=== PATIENT | male | born 1970 | race Caucasian/White ===

== ENCOUNTER 2017-04-12 09:37 | Emergency (ER) | payer OTHER ==
[~2017-04-12] VITALS: Ht 195.6 cm; Wt 135.2 kg
--- NOTE | 2017-04-12 12:30 | NUR ---
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 NO SOB. VITALS STABLE. SAFETY AND COMFORT MEASURES IN PLACE. AWAITING MD ORDERS.
[2017-04-12] MEDS ORDERED: LIDOCAINE 1%-EPI 1:100,000 50 ML VIAL IJ ONE (12:41)
[2017-04-12] MEDS ORDERED: MEROPENEM 1 G in IV NS 0.9% 100 ML IV ONE (13:00)
[2017-04-12] MEDS ORDERED: VANCOMYCIN 1 GM in IV D5W 250 ML IV ONE (13:00)
[2017-04-12] MEDS ORDERED: IV NS 0.9% 1,000 ML BAG IV ONE (13:00)
--- NOTE | 2017-04-12 13:20 | NUR ---
NEW IV STARTED ON R HAND, 20 G. BLOOD DRAWN AND SENT TO LAB.
[2017-04-12 13:32] LABS: BASOPHILS # (AUTO) 0.3 /CMM (0.0-0.2); BASOPHILS % (AUTO) 4.2 % (0.0-2.0); EOSINOPHILS # (AUTO) 0.1 /CMM (0.0-0.7); EOSINOPHILS % (AUTO) 1.6 % (0.0-6.0); HEMATOCRIT 42 % (39-51); HEMOGLOBIN 14.1 g/dL (13.5-17.5); LYMPHOCYTES # (AUTO) 2.2 /CMM (0.8-4.8); LYMPHOCYTES % (AUTO) 30.2 % (20.0-44.0); MEAN CORPUSCULAR HEMOGLOBIN 29 PG (26.0-33.0); MEAN CORPUSCULAR HGB CONC 34 g/dl (31.0-36.0); MEAN CORPUSCULAR VOLUME 86 fL (80-96); MONOCYTES # (AUTO) 0.5 /CMM (0.1-1.30); MONOCYTES % (AUTO) 7.4 % (2.0-12.0); NEUTROPHILS # (AUTO) 4.3 /CMM (1.8-8.9); NEUTROPHILS % (AUTO) 56.6 % (43.0-81.0); PLATELET COUNT (AUTO) 273 /CMM (150-450); RDW COEFFICIENT OF VARIATION 12.4 (11.5-15.0); RED BLOOD CELL COUNT(AUTO) 4.86 MIL/uL (4.5-6.0); WHITE BLOOD COUNT (AUTO) 7.4 K/uL (4.3-11.0)
[2017-04-12 13:39] LABS: CALCIUM, SERUM 9.1 mg/dL (8.5-10.1); CARBON DIOXIDE 25 mmol/L (21-32); CHLORIDE 103 mmol/L (98-107); CREATININE 0.7 mg/dL (0.6-1.3); GLUCOSE 102 mg/dL (74-106); POTASSIUM 4.1 mmol/L (3.5-5.1); SODIUM SERUM 135 mmol/L (136-145); UREA NITROGEN, BLOOD 16 mg/dL (7-18)
[2017-04-12 13:43] LABS: INR 0.94 (0.87-1.13); PROTHROMBIN TIME 9.8 SECS (9.5-12.7)
[2017-04-12 13:45] LABS: ALANINE AMINOTRANSFERASE 26 U/L (12-78); ALBUMIN 3.7 g/dL (3.4-5.0); ALKALINE PHOSPHATASE 102 U/L (46-116); ASPARTATE AMINOTRANSFERASE 24 U/L (15-37); BILIRUBIN,DIRECT 0.1 mg/dL (0.0-0.2); BILIRUBIN,TOTAL 0.5 mg/dL (0.2-1.0); TOTAL PROTEIN, SERUM 8.1 g/dL (6.4-8.2)
[2017-04-12 13:47] LABS: TROPONIN I < 0.017 ng/mL (0.00-0.056)
--- NOTE | 2017-04-12 15:54 | NUR ---
IV removed. Catheter intact and site benign. Pressure and 4x4 applied to site. No bleeding noted.
--- NOTE | 2017-04-12 15:55 | NUR ---
Patient discharged to home in stable condition. Written and verbal after care instructions given. Patient verbalizes understanding of instruction. ADVISED TO FOLLOW UP WITH PMD IN 2 DAYS
[2017-04-12 15:56] VITALS: BP 152/88
[2017-04-12] MEDS ORDERED: HYDROCODONE/APAP 10/325MG 1 EA TABLET ONE (16:28)
[2017-04-12] MEDS ORDERED: HYDROCODONE/APAP 10/325MG 1 EA TABLET PO ONE (16:30)
== END 2017-04-12 15:57 | disposition home or self-care (01) ==
LOC: ER 09:40
DX: L02.512 Cutaneous abscess of left hand (principal); L03.114 Cellulitis of left upper limb
CPT/HCPCS: 10060; 36415; 73130; 80048; 80076; 83605; 84484; 85025; 85652; 85730; 86140; 87040 ×2; 96361; 96365; 96368; 99285; A4216; A4606; A6402; J2185; J3370; J3490; J7030; J7060; Z7610

== ENCOUNTER 2017-08-25 11:41 | Emergency (ER) | payer OTHER | END 2017-08-25 12:18 | disposition left against medical advice (07) | LOC: ER 11:42 | DX: Z53.21 Procedure and treatment not carried out due to patient leaving prior to being seen by health care provider (principal) ==

== ENCOUNTER 2017-08-25 13:01 | Emergency (ER) | payer OTHER ==
[~2017-08-25] VITALS: Ht 195.6 cm; Wt 136.1 kg
[2017-08-25 13:10] VITALS: BP 154/79
[2017-08-25 13:57] LABS: BASOPHILS % (AUTO) 0.4 % (0.0-2.0); EOSINOPHILS # (AUTO) 0.1 /CMM (0.0-0.7); EOSINOPHILS % (AUTO) 0.8 % (0.0-6.0); HEMATOCRIT 40 % (39-51); HEMOGLOBIN 13.6 g/dL (13.5-17.5); LYMPHOCYTES # (AUTO) 1.5 /CMM (0.8-4.8); LYMPHOCYTES % (AUTO) 19.2 % (20.0-44.0); MEAN CORPUSCULAR HEMOGLOBIN 28 PG (26.0-33.0); MEAN CORPUSCULAR HGB CONC 34 g/dl (31.0-36.0); MEAN CORPUSCULAR VOLUME 84 fL (80-96); MONOCYTES # (AUTO) 0.8 /CMM (0.1-1.30); MONOCYTES % (AUTO) 9.4 % (2.0-12.0); NEUTROPHILS # (AUTO) 5.7 /CMM (1.8-8.9); NEUTROPHILS % (AUTO) 70.2 % (43.0-81.0); PLATELET COUNT (AUTO) 241 /CMM (150-450); RDW COEFFICIENT OF VARIATION 12.4 (11.5-15.0); RED BLOOD CELL COUNT(AUTO) 4.81 MIL/uL (4.5-6.0); WHITE BLOOD COUNT (AUTO) 8.1 K/uL (4.3-11.0)
[2017-08-25 14:04] LABS: CREATININE 0.9 mg/dL (0.6-1.3); POTASSIUM 4.1 mmol/L (3.5-5.1)
--- NOTE | 2017-08-25 14:05 | NUR ---
BEAD FORMING MACHINE SET UP OPERATOR AT BEDSIDE
[2017-08-25 14:28] LABS: BILIRUBIN,URINE Negative (NEGATIVE); BLOOD, URINE Negative Ery/uL (NEGATIVE); COLOR,URINE Yellow (YELLOW); KETONES,URINE Negative (NEGATIVE); LEUKOCYTE ESTERASE ,URINE Negative (NEGATIVE); NITRITE, URINE Negative (NEGATIVE); PROTEIN,URINE 30 mg/dl (NEGATIVE); UGLUCOSE Negative (NEGATIVE)
[2017-08-25 14:30] LABS: APPEARANCE,URINE SLIGHTLY HAZY (CLEAR)
[2017-08-25 14:35] LABS: RBC,URINE NONE SEEN /HPF (0-2)
[2017-08-25 14:36] LABS: BACTERIA,URINE None seen /HPF (None Seen); SQUAMOUS EPITHELIAL CELL,UR Few /HPF (None Seen); WBC,URINE 0-3 /HPF (0-3)
[2017-08-25 14:37] LABS: URINE AMORPHOUS PHOSPHATES Moderate /HPF (None Seen)
== END 2017-08-25 14:39 | disposition home or self-care (01) ==
LOC: ER 13:02
DX: N45.1 Epididymitis (principal); N50.82 Scrotal pain; F17.200 Nicotine dependence, unspecified, uncomplicated
CPT/HCPCS: 36415; 76870-TC; 80048-TC; 81000-TC; 85025-TC; A4606; Z7610

== ENCOUNTER 2019-09-14 12:50 | Emergency (ER) | payer SELFPAY ==
[~2019-09-14] VITALS: Ht 195.6 cm; Wt 103.9 kg
[~2019-09-14 12:50] MED LIST: ABAC1TAB15 PO; FLUC100T PO; SPIR25TA PO; SULF1TAB48 PO
--- NOTE | 2019-09-14 13:10 | NUR ---
ble cellulitis sent from [facility] for futher eval. Patient a/ox4, breathing evena nd unlabored, afebrile, ambulatory withg steady gait.
--- NOTE | 2019-09-14 13:35 | NUR ---
Patient given written and verbal discharge instructions. Patient verbalizes understanding of instructions. Patient is ambulatory with steady gait. Refuses offer of long-term placement. Patient given list of available shelters in surrounding area.
[2019-09-14 13:39] VITALS: BP 129/56
== END 2019-09-14 13:39 | disposition home or self-care (01) ==
LOC: ER 12:50
DX: L03.116 Cellulitis of left lower limb (principal); L03.115 Cellulitis of right lower limb; Z79.899 Other long term (current) drug therapy; Z59.0 Homelessness

== ENCOUNTER 2020-04-20 08:16 | Emergency (ER) | payer SELFPAY ==
[~2020-04-20] VITALS: Ht 195.6 cm; Wt 113.4 kg
--- NOTE | 2020-04-20 08:20 | NUR ---
ACCOMPANIED BY PARTNET TO THE ER W C/O FEVER, WEAKNESS AND BLE PAIN, REDNESS AND SWELLING. TO ER BED 8, HOOKED TO FIRST AID DIRECTOR, BP CUFF AND POX, CHANGED TO HOSP GOWN, COOLING MEASURES DONE, PATIENT AAOx 4, BREATHING EVEN AND UNLABORED, NAD NOTED, AWAITING MD SPRINGER.
--- NOTE | 2020-04-20 08:37 | NUR ---
DR CONRAD AT BEDSIDE FOR EVAL.
[2020-04-20] MEDS ORDERED: ACETAMINOPHEN ES 500 MG TABLET ONE (08:57)
[2020-04-20] MEDS ORDERED: IBUPROFEN 600 MG TABLET ONE (08:57)
[2020-04-20] MEDS: IV NS 0.9% 1,000 ML BAG IV ONE ×2 (09:19→10:48)
[2020-04-20] MEDS: IBUPROFEN 600 MG TABLET PO ONE (09:19)
[2020-04-20] MEDS: ACETAMINOPHEN ES 500 MG TABLET PO ONE (09:20)
[2020-04-20 09:29] LABS: BASOPHILS % (AUTO) 0.1 % (0.0-2.0); HEMATOCRIT 37 % (39-51); HEMOGLOBIN 12.3 g/dL (13.5-17.5); LYMPHOCYTES # (AUTO) 1.9 /CMM (0.8-4.8); LYMPHOCYTES % (AUTO) 21.3 % (20.0-44.0); MEAN CORPUSCULAR HGB CONC 33 g/dl (31.0-36.0); MEAN CORPUSCULAR VOLUME 84 fL (80-96); MONOCYTES # (AUTO) 0.5 /CMM (0.1-1.30); MONOCYTES % (AUTO) 5.3 % (2.0-12.0); NEUTROPHILS # (AUTO) 6.6 /CMM (1.8-8.9); NEUTROPHILS % (AUTO) 73.3 % (43.0-81.0); PLATELET COUNT (AUTO) 220 /CMM (150-450); RED BLOOD CELL COUNT(AUTO) 4.41 MIL/uL (4.5-6.0)
[2020-04-20 09:34] LABS: CARBON DIOXIDE 28 mmol/L (21-32); CHLORIDE 94 mmol/L (98-107); CREATININE 1.1 mg/dL (0.6-1.3); GLUCOSE 84 mg/dL (74-106); POTASSIUM 3.3 mmol/L (3.5-5.1); SODIUM SERUM 130 mmol/L (136-145); UREA NITROGEN, BLOOD 12 mg/dL (7-18)
[2020-04-20 09:41] LABS: ALANINE AMINOTRANSFERASE 24 U/L (12-78); ALBUMIN 3.2 g/dL (3.4-5.0); ALKALINE PHOSPHATASE 95 U/L (46-116); ASPARTATE AMINOTRANSFERASE 22 U/L (15-37); BILIRUBIN,DIRECT 0.2 mg/dL (0.0-0.2); BILIRUBIN,TOTAL 0.8 mg/dL (0.2-1.0); TOTAL PROTEIN, SERUM 8.6 g/dL (6.4-8.2)
[2020-04-20 10:41] LABS: APPEARANCE,URINE Clear (CLEAR); BILIRUBIN,URINE SMALL (NEGATIVE); BLOOD, URINE Negative Ery/uL (NEGATIVE); COLOR,URINE DARK YELLOW (YELLOW); KETONES,URINE Negative (NEGATIVE); LEUKOCYTE ESTERASE ,URINE Negative (NEGATIVE); NITRITE, URINE Negative (NEGATIVE); PH,URINE 6.5 (5.0-8.0); PROTEIN,URINE 100 mg/dl (NEGATIVE); UGLUCOSE Negative (NEGATIVE)
[2020-04-20 10:42] LABS: BACTERIA,URINE Rare /HPF (None Seen); RBC,URINE 0-2 /HPF (0-2); SQUAMOUS EPITHELIAL CELL,UR Rare /HPF (None Seen); WBC,URINE 0-2 /HPF (0-3)
[2020-04-20] MEDS ORDERED: PIPERACILLIN /TAZOBACTAM 3.375 G VIAL IV ONE (10:44)
[2020-04-20] MEDS: PIPERACILLIN /TAZOBACTAM 3.375 G in IV D5W 50 ML IV ONE (10:47)
[2020-04-20] MEDS: IV NS 0.9% 500 ML BAG IV ONE (10:48)
--- NOTE | 2020-04-20 13:21 | NUR ---
IV removed. Catheter intact and site benign. Pressure and 4x4 applied to site. No bleeding noted.
--- NOTE | 2020-04-20 13:25 | NUR ---
Patient given written and verbal discharge instructions. Patient verbalizes understanding of instructions. Patient is ambulatory with steady gait. Refuses offer of longterm placement. Patient given list of available shelters in surrounding area. Patient in proper clothing upon discharge. Name band removed. All belongings brought by patient upon discharge. Provided w sandwich and Gatorade.
[2020-04-20 13:37] VITALS: BP 106/60
== END 2020-04-20 13:31 | disposition home or self-care (01) ==
LOC: ER 08:23
DX: J18.9 Pneumonia, unspecified organism (principal); R00.0 Tachycardia, unspecified; R94.31 Abnormal electrocardiogram [ECG] [EKG]; Z20.828 Contact with and (suspected) exposure to other viral communicable diseases; E87.2 Acidosis
CPT/HCPCS: 36415; 71045; 80048; 80076; 81001; 83605 ×2; 84145; 84484; 85025; 85730; 87040 ×2; 87086; 87426; 87804; 93005; 96361; 96365; 99285; C9803; J2543 ×2; J7030 ×2; J7040; J7060; 81000-TC

== ENCOUNTER 2020-08-17 00:54 | Emergency (ER) | payer MEDICAID ==
[~2020-08-17] VITALS: Ht 190.5 cm; Wt 104.3 kg
--- NOTE | 2020-08-17 01:26 | NUR ---
PT BIBSELF C/O LEFT THUMB WEAKNES AND PAIN X 2WEEKS. PT AAOX4 BREATHING EVENLY AND UNLABORED. PT STATES " IT HURTS AND I FEEL WEAK WHEN I TRY TO OPEN THINGS OR ZIP MY JACKET." MD AT BEDSIDE. SKIN WARM, DRY, AND INTACT. PT ATTACHED TO MONITOR AND POX. PT GIVEN BLANKET AND CALL LIGHT WITHIN REACH.
--- NOTE | 2020-08-17 01:38 | NUR ---
XRAY AT BEDSIDE
[2020-08-17] MEDS ORDERED: IBUPROFEN 400 MG TABLET ONE (01:39)
[2020-08-17] MEDS: IBUPROFEN 400 MG TABLET PO ONE (01:42)
[2020-08-17] MEDS ORDERED: IBUP-1957 PO (01:57)
--- NOTE | 2020-08-17 02:04 | NUR ---
Patient discharged to home in stable condition. Written and verbal after care instructions given. Patient verbalizes understanding of instruction. Pt ambulatory with a steady gait
[2020-08-17 02:05] VITALS: BP 142/79
== END 2020-08-17 02:04 | disposition home or self-care (01) ==
LOC: ER 01:01
DX: M79.642 Pain in left hand (principal); F17.200 Nicotine dependence, unspecified, uncomplicated; Z59.0 Homelessness; Z79.899 Other long term (current) drug therapy
CPT/HCPCS: 73130-TC

== ENCOUNTER 2020-12-18 22:32 | Inpatient (IN) | payer MEDICAID, OTHER ==
[~2020-12-18] VITALS: Ht 195.6 cm; Wt 93.9 kg
[~2020-12-18 22:32] MED LIST changes: +IBUP-1957 PO
--- NOTE | 2020-12-18 22:34 | NUR ---
BIB 102 FROM [email or web address] FOR C/O BODY ACHE AND FEVER X 2 DAYS NOT VACCINATED FOR COVID, PT AAOX4, DENIES ANY CP/SOB. PT TO BED 5, PENDING ER PROVIDER RACHEAL
[2020-12-18] MEDS ORDERED: ACETAMINOPHEN ES 500 MG TABLET ONE (22:56)
[2020-12-18 22:59] LABS: BASOPHILS % (AUTO) 0.3 % (0.0-2.0); HEMATOCRIT 34 % (39-51); HEMOGLOBIN 11.2 g/dL (13.5-17.5); LYMPHOCYTES # (AUTO) 1.2 /CMM (0.8-4.8); LYMPHOCYTES % (AUTO) 14.4 % (20.0-44.0); MEAN CORPUSCULAR HGB CONC 33 g/dl (31.0-36.0); MEAN CORPUSCULAR VOLUME 86 fL (80-96); MONOCYTES # (AUTO) 0.5 /CMM (0.1-1.30); MONOCYTES % (AUTO) 5.5 % (2.0-12.0); NEUTROPHILS # (AUTO) 6.7 /CMM (1.8-8.9); NEUTROPHILS % (AUTO) 79.8 % (43.0-81.0); PLATELET COUNT (AUTO) 130 /CMM (150-450); RED BLOOD CELL COUNT(AUTO) 3.96 MIL/uL (4.5-6.0); WHITE BLOOD COUNT (AUTO) 8.4 K/uL (4.3-11.0)
[2020-12-18] MEDS ORDERED: IV NS 0.9% 1,000 ML BAG IV ONE (23:00)
[2020-12-18] MEDS ORDERED: ACETAMINOPHEN ES 500 MG TABLET PO ONE (23:00)
--- NOTE | 2020-12-18 23:21 | NUR ---
LACTIC ACID 2.5
[2020-12-18 23:26] LABS: ALANINE AMINOTRANSFERASE 23 U/L (12-78); ALKALINE PHOSPHATASE 69 U/L (46-116); ASPARTATE AMINOTRANSFERASE 24 U/L (15-37); BILIRUBIN,DIRECT 0.2 mg/dL (0.0-0.2); BILIRUBIN,TOTAL 0.7 mg/dL (0.2-1.0); CALCIUM, SERUM 8.3 mg/dL (8.5-10.1); CARBON DIOXIDE 24 mmol/L (21-32); CHLORIDE 99 mmol/L (98-107); CREATININE 1.5 mg/dL (0.6-1.3); GLUCOSE 88 mg/dL (74-106); SODIUM SERUM 134 mmol/L (136-145); TOTAL PROTEIN, SERUM 7.4 g/dL (6.4-8.2); UREA NITROGEN, BLOOD 23 mg/dL (7-18)
[2020-12-18 23:27] LABS: POTASSIUM 2.8 mmol/L (3.5-5.1)
--- NOTE | 2020-12-18 23:27 | NUR ---
POTASSIUM 2.8
[2020-12-19] VITALS (23 sets, daily range): BP systolic 84–101; BP diastolic 54–64
[2020-12-19] MEDS ORDERED: IV NS 0.9% 1,000 ML BAG IV ONE
[2020-12-19] MEDS ORDERED: PIPERACILLIN /TAZOBACTAM 3.375 G in IV D5W 50 ML IV ONE
[2020-12-19] MEDS ORDERED: VANCOMYCIN 1 GM in IV D5W 250 ML IV ONE
[2020-12-19 00:21] LABS: BILIRUBIN,URINE SMALL (NEGATIVE); COLOR,URINE DARK YELLOW (YELLOW); LEUKOCYTE ESTERASE ,URINE Negative (NEGATIVE); NITRITE, URINE Negative (NEGATIVE); PROTEIN,URINE 100 mg/dl (NEGATIVE); UGLUCOSE Negative (NEGATIVE)
[2020-12-19 00:30] LABS: BACTERIA,URINE Rare /HPF (None Seen); RBC,URINE 0-2 /HPF (0-2); SQUAMOUS EPITHELIAL CELL,UR Rare /HPF (None Seen); WBC,URINE 0-2 /HPF (0-3)
[2020-12-19 00:31] LABS: URINE AMORPHOUS PHOSPHATES Few /HPF (None Seen)
[2020-12-19] MEDS ORDERED: PIPERACILLIN /TAZOBACTAM 3.375 G VIAL IV ONE (01:12)
[2020-12-19] MEDS ORDERED: VANCOMYCIN 1 GM VIAL ONE (01:13)
--- NOTE | 2020-12-19 02:25 | NUR ---
REC'D VERBAL AUTHORIZATION FROM DR ADAMS TO ADMIT THE PT
--- NOTE | 2020-12-19 05:30 | NUR ---
PT NOTED TO BE HYPOTENSIVE BUT ASYMPTOMATIC, AAOX4, NOT IN ACUTE DISTRESS, AMBULATES WITH STEADY GAIT, DR. THOMPSON AWARE.
--- NOTE | 2020-12-19 05:45 | NUR ---
PT NEEDED TO USE BATHROOM FOR BM, OFFERED COMMODE AT BEDSIDE D/T PATIENT HAVING LOW BP. PT AWARE, PT PREFERS TO USE BATHROOM, ASSISTED TO BATHROOM. PT AMBULATED WITH STEADY GAIT
[2020-12-19] MEDS ORDERED: POTASSIUM CHLORIDE 20 MEQ TAB.PRT.SR PO ONE ×2 (06:08→06:30)
[2020-12-19] MEDS ORDERED: IV NS 0.9% 1,000 ML IV SCH (06:30)
[2020-12-19] MEDS ORDERED: ONDANSETRON HCL/PF 4 MG/2 ML VIAL IVP PRN (06:30)
[2020-12-19] MEDS ORDERED: MAGNESIUM HYDROXIDE 30 ML UDC PO PRN (06:30)
[2020-12-19] MEDS ORDERED: ZOLPIDEM TARTRATE 5 MG TABLET PO PRN (06:30)
[2020-12-19] MEDS ORDERED: Z GUARD REMEDY 2 OZ OINT TP PRN (06:30)
[2020-12-19] MEDS ORDERED: MAG HYDROX/AL HYDROX/SIMETH 30 ML UDC PO PRN (06:30)
[2020-12-19] MEDS ORDERED: ACETAMINOPHEN 325 MG TABLET PO PRN (06:30)
[2020-12-19 07:02] LABS: BASOPHILS % (AUTO) 0.1 % (0.0-2.0); HEMATOCRIT 30 % (39-51); HEMOGLOBIN 10.1 g/dL (13.5-17.5); LYMPHOCYTES # (AUTO) 1.2 /CMM (0.8-4.8); LYMPHOCYTES % (AUTO) 11.8 % (20.0-44.0); MEAN CORPUSCULAR HGB CONC 34 g/dl (31.0-36.0); MEAN CORPUSCULAR VOLUME 86 fL (80-96); MONOCYTES # (AUTO) 0.3 /CMM (0.1-1.30); MONOCYTES % (AUTO) 2.8 % (2.0-12.0); NEUTROPHILS # (AUTO) 8.4 /CMM (1.8-8.9); NEUTROPHILS % (AUTO) 85.3 % (43.0-81.0); PLATELET COUNT (AUTO) 111 /CMM (150-450); RED BLOOD CELL COUNT(AUTO) 3.49 MIL/uL (4.5-6.0); WHITE BLOOD COUNT (AUTO) 9.9 K/uL (4.3-11.0)
[2020-12-19 07:24] LABS: CALCIUM, SERUM 7.4 mg/dL (8.5-10.1); CREATININE 1.5 mg/dL (0.6-1.3); MAGNESIUM 1.3 mg/dL (1.8-2.4); PHOSPHORUS 4.8 mg/dL (2.5-4.9); POTASSIUM 3.8 mmol/L (3.5-5.1)
--- NOTE | 2020-12-19 07:37 | NUR ---
50 years old male with hx of HIV non compliant with treatment presents to er febrile, hypotensive alert, oriented x4 awaiting for admit bed.
[2020-12-19] MEDS ORDERED: ACYC400T19 PO (08:07)
[2020-12-19] MEDS ORDERED: SPIRONOLACTONE 25 MG TABLET PO SCH (09:00)
[2020-12-19] MEDS ORDERED: IBUPROFEN 400 MG TABLET PO PRN (09:30)
--- NOTE | 2020-12-19 09:55 | NUR ---
BED 255
[2020-12-19] MEDS: PIPERACILLIN /TAZOBACTAM 3.375 G in IV D5W 50 ML IV SCH ×2 (11:00→16:16)
--- NOTE | 2020-12-19 11:11 | NUR ---
PICC LINE INSERTED.
--- NOTE | 2020-12-19 11:12 | NUR ---
REPORT GIVEN TO CHRISTY SORENSEN FOR JOB.
--- NOTE | 2020-12-19 11:36 | NUR ---
PT ARRIVED IN ICU AT THIS TIME. PT ALERT OX4, STEADY ON FEET. PT SETTLED IN ROOM, 2L NC. RIGHT UPPER ARM PICC LINE WAS INSERTED IN ER PRIOR TO ARRIVAL IN ICU.
--- NOTE | 2020-12-19 11:41 | NUR ---
PT TRANSPORTED TO UNIT ON GUREN WITH EMT AND RN AT BEDSIDE W/ ACLS PROTOCOL. NAD DURING TRANSPORT. PT AMBULATED FROM GURNEY TO BED ON STEADY GAIT W/O ASSIST.
[2020-12-19] MEDS: Magnesium 1GM/D5W 100ML PREMIX 100 ML IV SCH ×4 (13:08→17:11)
--- NOTE | 2020-12-19 14:31 | NUR ---
"SS Consult: SS consult requested for Homelessness & drug abuse. The pt. is a 50-year-old male. TRACI met with pt. bedside. The pt. is A&O X 4 and makes good eye contact. Pt. appears unkempt with euthymic mood. Pt. stated he is currently residing at [facility] [[address] [place] [address]; ] with girlfriend, Brooklynn Olmos [phone] and would like to return there once ready for D/C. TRACI discussed pt.s drug use with pt. Pt. stated he uses Meth daily. SW offered pt. drug rehab Tx and pt. refused stating he is not interested in becoming sober. Pt. lacks insight denying this is a problem. Pt. stated he has a daughter who is in communications with. Pt. states he receives food stamps, GR. Pt. denies SI/HI and denies hallucinations. Pt. signed homeless waiver and it was placed in pt.s chart. SW provided pt. with homeless resources and pt. accepted them. Substance Abuse resources provided included: [facility] Substance Abuse Self-Helpline ([facility]) ; CRI -HELP [address] [facility]. [place] [id number] ; [facility] [address] [facility] [address] ; [facility] Rehabilitation Program [address] [facility] [address] ; [facility]ically [facility] [address] [facility] [address] ; [facility] Treatment [facility] 5[address] [facility] [address] ; Nadia [facility] [place] 909 [facility] [address] ; [facility] Substance Abuse Helpline([facility])-[facility] ; [facility] ; [facility] [place]; [facility]; [facility] [place]; [facility] [place]; [facility]; [facility] [place]; [facility] [place]; [facility], [facility]. [place]; Alcoholics Anonymous -SFV; Fv-Usog-Mxklcxk ; Marijuana Anonymous -SFV; Narcotics Anonymous www.na.org; Year-round shelters: [facility] [address] [place], [place] [phone] ; [facility] [address] [place] [address]; [facility] Mdfxfyt2565 [facility] [address] Winter Shelters: [facility] Provider: [facility] [place] Address: [address] [place], [address] # of Beds: 47 Population Served: [facility] 6 | [facility] Raven Nascimento [place] Provider: [facility] at Last Address: [address] [place] [address], [address] # of Beds: 66 Population Served: [facility] [place] Provider: [facility] Serve Address: [address] [facility], [address] # of Beds: 56 Population Served: [facility] Ralph [place] Provider: SS[facility]. [facility] Address: [address] [facility], [address] # of Beds: 49 Population Served: [facility] 8 | [facility] Provider: [facility] Serve Address: [address] [facility], [address] # of Beds: 37 Population Served: [facility] Hygiene: [facility]: [address] ; [facility] [address] [facility] [place] ; [facility] [address] [place] . Food Resources: [facility] at [facility]- [address] [place]; Meet Each Need with Dignity ([facility]) [address] [facility] [place]; [facility] Food Pant[facility] [address] [facility]; [facility] [address] [place] [facility] [place]. Mental Health resources provided: [facility] [address] [place] [address] ; [facility] [address] [facility] [address], [place] [address] ; [facility] [address] [place] [address] ; [facility] [address] [place], [place] [phone] Healthcare Clinics: [facility] [address] [facility], [facility] [address] [place]. [place] ; [facility] [address] [facility] [address] [place] [address]; [facility] Health Sch[place] [address] [facility] [place] [address] [phone] Counseling--Outpatient [facility] [address] [facility], [place] [address] (Specializes in in-depth psychotherapy for emotional distress: anxiety, depression, interpersonal conflicts, life transitions, childhood abuse) [facility] [address] [place] [address] (Assist with solving problem marital difficulties, separation & divorce, aging parents, & grief, chronic & terminal illness) [facility] [address] [place] [address] (Deal with loss & grief, anxiety, marital difficulties) Homebound/Mental Health Services [address], [address] [facility] [place] [address] (Provide in-home mental services to people who are incapable of leaving their homes) [facility] Needs of the Elderly Senior Service/Resource Center [address] [place], [place] [phone] [facility] [address]. Marco Joyner [place] [phone] PSYCHIATRIC OUTPATIENT SERVICES [facility] Partial Hospitalization and Intensive Outpatient Program (Managed Care and [place] Only)[address]. [facility] [phone] [facility] Partial Hospitalization and Outpatient [id number] [place], [place] [phone] [facility] Partial Hospitalization and Outpatient [id number]. [place], [place] [phone] MARCO TAWNY [facility] Mental Health Center [id number] [place], [place] [phone] [facility] [place] Partial Hospitalization and Outpatient [id number] Abdulkadir [facility] SIMA [phone] "
--- NOTE | 2020-12-19 15:43 | NUR ---
PHARMACY REQUESTED TO GET HOME SUPPLY OF PATIENTS MED TRIUMEQ. PT STATES HE TAKES IT AT HOME AND HIS GIRLFRIEND CAROL CAN BRING IT. RN CALLED AND SPOKE TO CAROL. CAROL STATED SHE WILL BRING THE MED IN FOR PATIENT.
[2020-12-19] MEDS: IV NS 0.9% 1,000 ML IV PRN (16:17)
[2020-12-19] MEDS: VANCOMYCIN 1 GM in IV D5W 250 ML IV SCH (18:23)
--- NOTE | 2020-12-19 19:30 | NUR ---
END OF SHIFT NOTE: PT RECEIVED 4 GMS OF MAG PER MD ORDERS PER IV. PT IS STEADY ON FEET, SEVERAL SMALL FORMED BM'S NOTED PER PATIENT. PT ATE 100% OF MEALS WITHOUT DIFFICULTY. NO HYPOTENSION OR ELEVATED TEMP NOTED IN ICU THIS SHIFT. PT CHECKED ON HOURLY AND PRN BY NURSING STAFF.
--- NOTE | 2020-12-19 20:00 | NUR ---
Received patient A/OX4.DX: Sepsis.Afebrile.SR/ST 109.Breathing even and unlabored.Saturation on RA 98%-100%.Denies pain or any discomfort.IVF NS infusing to JAVIER PICC LINE and site intact. Independent with bed mobility.Both lower leg with edema and elevated on pillows.Continue to monitor.
[2020-12-19] MEDS: CEFEPIME 2 GM in IV D5W 100 ML IV SCH (21:15)
[2020-12-20] VITALS (25 sets, daily range): BP systolic 81–116; BP diastolic 33–69
--- NOTE | 2020-12-20 | NUR ---
Ambulated to restroom voided and with BM.VS remains stable.Bed bath rendered.Verbalized comfort. Complete linens changed.Call light at bedside.
[2020-12-20] MEDS: IV NS 0.9% 1,000 ML IV PRN ×2 (04:24→22:38)
[2020-12-20 05:22] LABS: CALCIUM, SERUM 7.7 mg/dL (8.5-10.1); CREATININE 0.7 mg/dL (0.6-1.3); MAGNESIUM 1.9 mg/dL (1.8-2.4); POTASSIUM 3.3 mmol/L (3.5-5.1)
[2020-12-20] MEDS: VANCOMYCIN 1 GM in IV D5W 250 ML IV SCH ×3 (06:08→22:40)
--- NOTE | 2020-12-20 07:13 | NUR ---
Patient resting.VS remains stable.Hemodynamically stable.SR per tele monitoring.IVF infusing well. All due medication administered.Ambulatory to the restroom BM x2.Denies pain or any discomfort. No significant change noted during the night.Patient Home medication Triumeq 40 tabs here and endorsed to day shift RN for JOB.
--- NOTE | 2020-12-20 07:30 | NUR ---
ICU/RN PT IS AWAKE,ALERT,ORIENTED-4.RESTING IN THE BED,ON ROOM AIR,SAT O2-96%.V/S STABLE,T-100.1.NO PAIN REPORTED AT THIS TIME.RIGHT UPPER ARM PICC LINE IV INFUSING ORDERED.PT IS AMBULATING IN THE ROOM AND USE RESTROOM.SINUS RHYTHM OM MONITOR.BLE EXTREMITIES CELLULITIS.
[2020-12-20] MEDS: CEFEPIME 2 GM in IV D5W 100 ML IV SCH ×2 (08:03→21:15)
--- NOTE | 2020-12-20 08:36 | NUR ---
ICU/RN T-100.1.TYLENOL PO GIVEN ORDERED. LABS REVIEW.MD NOTIFIED.NEW ORDERS RECEIVED. CONTINUE MONITORING.
--- NOTE | 2020-12-20 08:37 | NUR ---
WOUND CARE CONSULT: REVIEWED CHART, NURSING DOCUMENTATION AND PHOTO WHICH INDICATES REDNESS TO BILATERAL LOWER LEGS AND RT GREAT TOE DRY WOUND, PRESENT ON ADMISSION. RECOMMEND DPM CONSULT. DR GAY NOTIFIED OF CONSULT REQUEST. CURRENT MAU SCORE IS 20. MD IN AGREEMENT WITH PLAN OF CARE.
[2020-12-20] MEDS ORDERED: POTASSIUM CHLORIDE 20 MEQ TAB.PRT.SR PO ONE (09:00)
--- NOTE | 2020-12-20 15:23 | NUR ---
ICU/RN PT STABLE TO TRANSFER TO TELE UNIT.V/S STABLE,AFEBRILE.NO PAIN REPORTED AT THIS TIME.REPORT GIVEN TO RN/RHIANNON.
--- NOTE | 2020-12-20 19:40 | NUR ---
RN OPENING NOTE REC'D PT IN BED, A/O X4 ROOM AIR, NO SOB OR RESP DISTRESS NOTED. O2 SAT 99%. PT IS SINUS TACH ON TELE MONITOR WITH HEART RATE OF 87. PT BASELINE. PT IS AMBULATORY WITH STEADY GAIT. PT HAS IV SITE, JAVIER PICC AND LAC NOTED. FLUSHED ASEPTICALLY. LEFT FOREARM IV PAINFUL PER PT, IV SITE DISCONTINUED WITH CATHETER INTACT, GAUZE AND PRESSURE APPLIED, 1 MIN. NO S/S OF BLEEDING NOTED. PT HAS IV FLUIDS NS 0.9@ 100ML/HR RUNNING ORDERED. NO S/S OF INFILTRATION NOTED. ISOLATION PRECAUTIONS IN PLACE FOR PCR PENDING. HOB ELEVATED. SUCTION EQUIPMENT AT BEDSIDE. SIDE RAILS UP X2 BED LOCKED IN LOWEST POSITION WITH BED ALARM INDUSTRIAL ROOFER HELPER LIGHT WITHIN REACH. WILL CONT TO MONITOR CLOSELY THROUGHOUT SHIFT.
--- NOTE | 2020-12-20 22:30 | NUR ---
RN NOTE PCR RESULT NEGATIVE APPROPRIATE PRECAUTIONS IN PLACE PER PROTOCOL
[2020-12-21] VITALS: BP 101/62
[2020-12-21 04:00] VITALS: BP 106/65
[2020-12-21] MEDS: VANCOMYCIN 1 GM in IV D5W 250 ML IV SCH ×3 (05:27→21:25)
--- NOTE | 2020-12-21 06:31 | NUR ---
RN NOTE NO CHANGE IN PT CONDITION. PT IS STILL ON ROOM AIR, TOLERATING WELL NO SOSB NO RESP DISTRESS NOTED. PT AT THIS TIME STILL PRESENTS WITH NSR HR 89. PT STILL HAS IVF RUNNING ORDERED. NO S/S OF INFILTRATION NOTED. ALL SAFETY MEASURES IN PLACE. HOB ELEVATED TOLERATED SIDE RAILS UPX2 BED LOCKED IN LOWEST POSITION CALL LIGHT WITHIN REACH. ALL NEEDS ATTENDED ALL DUE MEDICATIONS GIVEN ORDERED. WILL ENDORSE TO DAY SHIFT FOR CONTINUATION OF CARE.
[2020-12-21 07:19] LABS: CALCIUM, SERUM 7.7 mg/dL (8.5-10.1); CREATININE 0.7 mg/dL (0.6-1.3); POTASSIUM 3.3 mmol/L (3.5-5.1)
[2020-12-21 08:00] VITALS: BP 99/56
--- NOTE | 2020-12-21 08:06 | NUR ---
MARY RN NOTE PATIENT IN BED , ALERT ORIENTED . PT IS ON ROOM AIR, TOLERATING WELL NO SOSB NO RESP DISTRESS NOTED. PT AT THIS TIME STILL PRESENTS WITH NSR HR 89. PT STILL HAS IVF RUNNING ORDERED. NO S/S OF INFILTRATION NOTED. ALL SAFETY MEASURES IN PLACE. HOB ELEVATED TOLERATED SIDE RAILS UPX2 BED LOCKED IN LOWEST POSITION CALL LIGHT WITHIN REACH. ALL NEEDS ATTENDED ,RT UPPER PICC LINE IN PLACE ON IVF ORDERED ,BED IN LOWEST AND LOCKED POSITION ,CALL LIGHT WITHIN REACH WILL, WILL CONT TO MONITOR
[2020-12-21] MEDS: CEFEPIME 2 GM in IV D5W 100 ML IV SCH ×2 (08:16→21:25)
[2020-12-21 09:07] LABS: *% CD 4 POS. LYMPH 1.6 % (30.8-58.5); *% CD 8 POS. LYMPH 58.1 % (12.0-35.5); *CD4/CD8 RATIO 0.03 (0.92-3.72)
--- NOTE | 2020-12-21 09:13 | NUR ---
ENAMEL DRIER NOTE SEEN BY DR VELASCO UPDATED WITH PATIENT CONDITION, AWARE K 3.3 WILL CONT TO MONITOR
[2020-12-21] MEDS ORDERED: POTASSIUM CHLORIDE 20 MEQ TAB.PRT.SR PO SCH (10:00)
[2020-12-21] MEDS: ENSURE ENLIVE 237 ML LIQUID (VANILLA) PO SCH ×2 (11:59→16:43)
[2020-12-21] MEDS ORDERED: POTASSIUM CHLORIDE 10 MEQ TABLET.SA PO ONE (12:00)
--- NOTE | 2020-12-21 12:00 | NUR ---
cable television program director note patient resting comfortable in bed , all needs attended ,on ivf as ordered will cont to monitor
[2020-12-21] MEDS: IV NS 0.9% 1,000 ML IV PRN ×2 (12:04→23:05)
[2020-12-21 12:07] LABS: *ABSOLUTE CD 4 HELPER 22 /uL (359-1519); *ABSOLUTE CD 8 SUPPRESSOR 813 /uL (109-897); *BASOS 0 % (Not Estab.); *COMMENTS Note: (.); *EOS 0 % (Not Estab.); *HCT 30.1 % (37.5-51.0); *HGB 9.5 g/dL (13.0-17.7); *IMMATURE GRANULOCYTES 1 % (Not Estab.); *IMMATURE GRANULOCYTES(ABS) 0.1 x10E3/uL (0.0-0.1); *LYMPHOCYTES 16 % (Not Estab.); *LYMPHS, ABSOLUTE 1.4 x10E3/uL (0.7-3.1); *MCHC 31.6 g/dL (31.5-35.7); *MCV 86 fL (79-97); *MONOCYTES 5 % (Not Estab.); *MONOS, ABSOLUTE 0.4 x10E3/uL (0.1-0.9); *NEUTROPHILS 78 % (Not Estab.); *NEUTROPHILS, ABSOLUTE 7.1 x10E3/uL (1.4-7.0); *PLT 106 x10E3/uL (150-450); *RBC 3.52 x10E6/uL (4.14-5.80); *RDW 14.7 % (11.6-15.4)
--- NOTE | 2020-12-21 14:00 | NUR ---
MS RN NOTE DR MTICHELL FOOT DOCTOR AT BEDSIDE AWARE OF BOTH LEGS WITH RED DISCOLORATION
--- NOTE | 2020-12-21 15:00 | NUR ---
MS RN NOTE ROUNDS MADE , ALL NEEDS ATTENDED NOT IN DISTRESS, NO C\O PAIN OR DISCOMFORT
[2020-12-21 16:00] VITALS: BP 101/61
--- NOTE | 2020-12-21 19:03 | NUR ---
RN CLOSING NOTE PT IS CURRENTLY IN BED, COMFORTABLE AND DENIES ANY PAIN. A/O X4, COOPERATIVE WITH PLAN OF CARE. MEALS TOLERATED WELL AND MEDICATIONS ADMINISTERED ORDERED. WOUND CARE COMPLETED. ON IV FLUIDS ORDERED. BED LOCKED AND LOWEST POSITION. SAFETY MEASURES IMPLEMENTED. CALL LIGHT WITHIN REACH. NO ACUTE DISTRESS NOTED AT THIS TIME.
--- NOTE | 2020-12-21 19:35 | NUR ---
RN OPENING NOTES: RECEIVED PT A/OX4 IN BED RESTING COMFORTABLY. PATIENT IN NO S/SX OF ACUTE DISTRESS AT THIS TIME. NO SOB NOTED. PATIENT'S BREATHING IS EVEN AND UNLABORED. PATIENT IS ON ROOM AIR ; TOLERATING WELL WITH 02 SAT OF 98% AT THE TIME OF RECEIVED. PATIENT ON REGULAR DIET; TOLERATES WELL. NOTED IV SITE ON R UA PICC LINE ; PATENT, INTACT AND FLUSHING WELL; NO S/S OF INFECTION OR INFILTRATION.WITH IV FLUID RUNNING ORDERED. SAFETY MEASURES HAVE BEEN PROVIDED AND IMPLEMENTED. PATIENT BED ALARM IS ON. HEAD OF BED ELEVATED. BED IS LOCKED, IN LOWEST POSITION AND SIDE RAILS UP. CALL LIGHT WITHIN REACH OF THE PATIENT. APPLICABLE ISOLATION PRECAUTIONS IN PLACE. WILL CONTINUE TO MONITOR AND REASSESS FOR ANY CHANGES AND WILL CARRY OUT ANY ONGOING AND ACTIVE MD ORDER.
[2020-12-21 20:00] VITALS: BP 101/63
[2020-12-21] MEDS ORDERED: AZITHROMYCIN 250 MG TABLET PO SCH (21:00)
--- NOTE | 2020-12-21 21:46 | NUR ---
RN NOTES Lelia from laboratory called that stool is not enough for c diff and O&P; will run c diff test and will collect another specimen for O&P. Cal, primary RN made aware
--- NOTE | 2020-12-21 23:00 | NUR ---
RN NOTES NO CHANGE IN PATIENT CONDITION AT THIS TIME PATIENT VITALS STABLE, NO SIGNS OF ACUTE RESPIRATORY DISTRESS. PUTTY MIXER MADE AWARE. WILL CONTINUE TO MONITOR AND REASSESS FOR ANY CHANGES THROUGHOUT THE SHIFT.
[2020-12-22 04:00] VITALS: BP 104/69
--- NOTE | 2020-12-22 04:00 | NUR ---
RN NOTES PATIENT REMAINS IN NO ACUTE RESPIRATORY DISTRESS AT THIS TIME, NO CHANGES TO CONDITION/STATUS. CUT OFF MACHINE HELPER WELL AWARE. WILL CONTINUE TO MONITOR AND REASSESS FOR ANY CHANGES THROUGHOUT THE SHIFT
--- NOTE | 2020-12-22 04:05 | NUR ---
RN NOTES ENDORSEMENT REPORT FOR JOB GIVEN TO FRANCHESCA KONG. GREY STOCK RECORDER MADE AWARE
[2020-12-22] MEDS: VANCOMYCIN 1 GM in IV D5W 250 ML IV SCH (05:46)
[2020-12-22 06:41] LABS: CALCIUM, SERUM 7.7 mg/dL (8.5-10.1); CREATININE 0.6 mg/dL (0.6-1.3); POTASSIUM 3.6 mmol/L (3.5-5.1)
--- NOTE | 2020-12-22 08:10 | NUR ---
RN OPENING NOTES RECEIVED PATIENT IN BED, AWAKE, A/O X4. NO COMPLAINS OF PAIN. JAVIER PICC AND LAC G #18 PRESENT AND INTACT INFUSING NS @ 100 MLS/HR. SAFETY PRECAUTIONS IN PLACE; BED IN LOW POSITION AND LOCKED, RAILS UP X2, CALL LIGHT WITHIN REACH. WILL CONTINUE TO MONITOR PATIENT.
[2020-12-22] MEDS: ENSURE ENLIVE 237 ML LIQUID (VANILLA) PO SCH (08:51)
[2020-12-22] MEDS ORDERED: FLUCONAZOLE (100 MG) 100 MG TABLET PO SCH (09:00)
[2020-12-22] MEDS ORDERED: ACYCLOVIR 200 MG CAPSULE PO SCH (09:00)
[2020-12-22] MEDS ORDERED: SULFAMETH/TRIMETH 800/160 MG 1 UDTAB TABLET PO SCH ×2 (09:00→17:00)
[2020-12-22] MEDS: CEFEPIME 2 GM in IV D5W 100 ML IV SCH (09:13)
[2020-12-22 13:16] VITALS: BP 114/72
--- NOTE | 2020-12-22 14:46 | NUR ---
LAN MANAGER NOTES PATIENT DISCHARGED TO [facility] IN MEDICALLY STABLE CONDITION. PATIENT A/O X4, ABLE TO MKE NEEDS KNOWN, ON ROOM AIR. NO COMPLAINS OF PAIN. ALL DISCHARGE DOCUMENTATION PROVIDED ALONG WITH THE TEACHING AND PHYSICIAN DISCHARGE INSTRUCTIONS; PATIENT VERBALIZED UNDERSTANDING. BELONGINGS ACCOUNTED FOR AND RETURNED TO PATIENT; BELONGINGS FORM SIGNED. PHOTO OF BILATERAL FEET TAKEN. PATIENT REFUSED TO TAKE THE NEW DRESSING OFF TO TAKE A PIC OF HIS RIGHT TOE. THE DRESSING WAS DONE THIS AM BY WOUND MD AND PATIENT REFUSED TO TAKE IT OFF. BEFORE LIVING THE FLOOR PICC LINE WAS REMOVED. PATIENT LEFT THE UNIT VIA WHEELCHAIR AT 1420 IN A WHEELCHAIR ACCOMPANIED BY RN. PATIENTS GIRLFRIEND PROVIDED TRANSPORTATION FOR THE PATIENT.
== END 2020-12-22 13:30 | disposition home or self-care (01) | DRG 720 ==
LOC: ER 22:39 → UNDOADMIN 12-19 07:39 → TRANSITION 12-19 07:39 → ICU 12-19 10:10 → TELE1 12-20 15:53 → MEDSG1 12-21 14:11
PROVIDERS: ADMIT Internal Medicine; ATTEND Internal Medicine
PROC: 02HV33Z Insertion of Infusion Device into Superior Vena Cava, Percutaneous Approach (ICD-10-PCS; principal; 2020-12-19)
DX: A41.9 Sepsis, unspecified organism (principal); N17.0 Acute kidney failure with tubular necrosis; I21.A1 Myocardial infarction type 2; R65.21 Severe sepsis with septic shock; E87.2 Acidosis; E87.1 Hypo-osmolality and hyponatremia; D69.6 Thrombocytopenia, unspecified; Z20.822 Contact with and (suspected) exposure to COVID-19; D63.8 Anemia in other chronic diseases classified elsewhere; Z79.899 Other long term (current) drug therapy; L03.116 Cellulitis of left lower limb; N18.9 Chronic kidney disease, unspecified; I87.2 Venous insufficiency (chronic) (peripheral); F15.10 Other stimulant abuse, uncomplicated; E87.6 Hypokalemia; E86.1 Hypovolemia; S91.101A Unspecified open wound of right great toe without damage to nail, initial encounter; X58.XXXA Exposure to other specified factors, initial encounter; Y92.9 Unspecified place or not applicable; M62.562 Muscle wasting and atrophy, not elsewhere classified, left lower leg; M62.561 Muscle wasting and atrophy, not elsewhere classified, right lower leg
CPT/HCPCS: 36415; 36569; 38221; 71045-TC; 80048-TC; 80061-TC; 80076-TC; 80202-TC; 81001; 83605-TC; 83735-TC; 84100-TC; 84484-TC; 85025-TC; 85730-TC; 86360; 87040-TC; 87081-TC; 87086-TC; 93307-TC; 93970-TC; C9803; G0378; J0692; J2405; J2543; J3370; J3475; J7030; J7050; J7060; U0003

== ENCOUNTER 2021-05-10 15:39 | Emergency (ER) | payer OTHER ==
[~2021-05-10] VITALS: Ht 195.6 cm; Wt 85.7 kg
[~2021-05-10 15:39] MED LIST changes: +ACYC400T19 PO; -FLUC100T PO; -SPIR25TA PO; -SULF1TAB48 PO
--- NOTE | 2021-05-10 15:46 | NUR ---
TO ER BED 12, [id number] FRM THE STREETS C/O HEADACHE SINCE LAST NIGHT. AAOX3, BREATHING EVEN AND NON LABORED, CONNECTED TO MONITOR, AWAITING MD SPRINGER
--- NOTE | 2021-05-10 15:57 | NUR ---
CHER PRATT AT THE BEDSIDE
[2021-05-10] MEDS ORDERED: IV NS 0.9% 1,000 ML BAG IV ONE (16:00)
[2021-05-10] MEDS ORDERED: ACETAMINOPHEN ES 500 MG TABLET PO ONE (16:00)
[2021-05-10] MEDS ORDERED: TDAP [DIPH/PERTUSSIS/TET] 0.5 ML VIAL IM ONE ×2 (16:29→16:30)
[2021-05-10] MEDS ORDERED: ACETAMINOPHEN ES 500 MG TABLET ONE (16:29)
--- NOTE | 2021-05-10 16:30 | NUR ---
UNABLE TO PROVIDE URINE AT THIS TIME
--- NOTE | 2021-05-10 16:38 | NUR ---
COVID SWAB DONE AND SENT TO THE LAB
[2021-05-10 16:44] LABS: BASOPHILS % (AUTO) 0.2 % (0.0-2.0); HEMATOCRIT 42 % (39-51); HEMOGLOBIN 13.9 g/dL (13.5-17.5); LYMPHOCYTES # (AUTO) 0.9 K/uL (0.8-4.8); LYMPHOCYTES % (AUTO) 14.2 % (20.0-44.0); MEAN CORPUSCULAR HGB CONC 34 g/dl (31.0-36.0); MEAN CORPUSCULAR VOLUME 86 fL (80-96); MONOCYTES # (AUTO) 0.5 K/uL (0.1-1.30); MONOCYTES % (AUTO) 7.1 % (2.0-12.0); NEUTROPHILS % (AUTO) 78.5 % (43.0-81.0); PLATELET COUNT (AUTO) 201 K/uL (150-450); RED BLOOD CELL COUNT(AUTO) 4.85 MIL/uL (4.5-6.0); WHITE BLOOD COUNT (AUTO) 6.4 K/uL (4.3-11.0)
[2021-05-10 16:54] LABS: CALCIUM, SERUM 9.7 mg/dL (8.5-10.1); CARBON DIOXIDE 30 mmol/L (21-32); CHLORIDE 97 mmol/L (98-107); CREATININE 0.8 mg/dL (0.6-1.3); GLUCOSE 140 mg/dL (74-106); POTASSIUM 3.6 mmol/L (3.5-5.1); SODIUM SERUM 134 mmol/L (136-145); UREA NITROGEN, BLOOD 14 mg/dL (7-18)
[2021-05-10 16:59] LABS: ALANINE AMINOTRANSFERASE 40 U/L (12-78); ALBUMIN 3.9 g/dL (3.4-5.0); ALKALINE PHOSPHATASE 115 U/L (46-116); ASPARTATE AMINOTRANSFERASE 38 U/L (15-37); BILIRUBIN,DIRECT 0.2 mg/dL (0.0-0.2); BILIRUBIN,TOTAL 0.6 mg/dL (0.2-1.0); TOTAL PROTEIN, SERUM 8.6 g/dL (6.4-8.2)
--- NOTE | 2021-05-10 17:01 | NUR ---
URINE COLLECTED AND SENT TO LAB
[2021-05-10 17:20] LABS: BILIRUBIN,URINE NEGATIVE (NEGATIVE); COLOR,URINE YELLOW (YELLOW); LEUKOCYTE ESTERASE ,URINE NEGATIVE (NEGATIVE); NITRITE, URINE NEGATIVE (NEGATIVE); PH,URINE 8.5 (5.0-8.0); PROTEIN,URINE TRACE mg/dl (NEGATIVE); UGLUCOSE NEGATIVE (NEGATIVE); UROBILINOGEN,URINE >=8.0 EU/dL (0.2)
[2021-05-10 17:31] LABS: BACTERIA,URINE None seen /HPF (None Seen); RBC,URINE 0-2 /HPF (0-2); SQUAMOUS EPITHELIAL CELL,UR 0-2 /HPF (None Seen); WBC,URINE 0-2 /HPF (0-3)
[2021-05-10] MEDS ORDERED: BACI30OI9 TP (17:59)
[2021-05-10] MEDS ORDERED: IBUP-1955 PO (17:59)
--- NOTE | 2021-05-10 18:55 | NUR ---
IV removed. Catheter intact and site benign. Pressure and 4x4 applied to site. No bleeding noted.Patient discharged to home in stable condition. Written and verbal after care instructions given. Patient verbalizes understanding of instruction.
[2021-05-10 19:06] VITALS: BP 136/89
[2021-05-11] MEDS ORDERED: LEVE500T9 PO (13:06)
== END 2021-05-10 19:06 | disposition home or self-care (01) ==
LOC: ER 15:52
DX: S09.90XA Unspecified injury of head, initial encounter (principal); W18.30XA Fall on same level, unspecified, initial encounter; Y92.89 Other specified places as the place of occurrence of the external cause; S00.81XA Abrasion of other part of head, initial encounter; F15.10 Other stimulant abuse, uncomplicated; Z59.01 Sheltered homelessness; E87.1 Hypo-osmolality and hyponatremia; M50.322 Other cervical disc degeneration at C5-C6 level; M48.02 Spinal stenosis, cervical region; Z79.899 Other long term (current) drug therapy; Z20.822 Contact with and (suspected) exposure to COVID-19
CPT/HCPCS: 36415; 70450; 72125; 80048; 80076; 80307; 80320; 81001; 84484; 85025; 87426; 90471; 90715; 93005; 96360; 99285; C9803; J7030; G0480

== ENCOUNTER 2021-05-11 09:12 | Emergency (ER) | payer OTHER ==
[~2021-05-11] VITALS: Ht 195.6 cm; Wt 87.1 kg
[~2021-05-11 09:12] MED LIST changes: +BACI30OI9 TP; +IBUP-1955 PO
--- NOTE | 2021-05-11 09:23 | NUR ---
TO ER BED 14, [id number] FRM HOTEL C/O WITNESSED SEIZURE LIKE ACTIVITY X 1 MIN, AAOX3, BREATHING EVEN AND NON LABORED, CONNECTED TO MONITOR
--- NOTE | 2021-05-11 10:07 | NUR ---
SALINE LOCK ESTABLISHED, BLOOD DRAWN AND SENT TO LAB
[2021-05-11 10:11] LABS: BASOPHILS % (AUTO) 0.1 % (0.0-2.0); HEMATOCRIT 42 % (39-51); HEMOGLOBIN 14.2 g/dL (13.5-17.5); LYMPHOCYTES # (AUTO) 0.8 K/uL (0.8-4.8); MEAN CORPUSCULAR HGB CONC 34 g/dl (31.0-36.0); MEAN CORPUSCULAR VOLUME 85 fL (80-96); MONOCYTES # (AUTO) 0.4 K/uL (0.1-1.30); MONOCYTES % (AUTO) 6.8 % (2.0-12.0); NEUTROPHILS # (AUTO) 4.3 K/uL (1.8-8.9); NEUTROPHILS % (AUTO) 78.1 % (43.0-81.0); PLATELET COUNT (AUTO) 194 K/uL (150-450); RED BLOOD CELL COUNT(AUTO) 4.92 MIL/uL (4.5-6.0); WHITE BLOOD COUNT (AUTO) 5.6 K/uL (4.3-11.0)
[2021-05-11 10:26] LABS: CALCIUM, SERUM 9.1 mg/dL (8.5-10.1); CREATININE 0.6 mg/dL (0.6-1.3); POTASSIUM 3.8 mmol/L (3.5-5.1)
[2021-05-11 10:32] LABS: ALBUMIN 3.6 g/dL (3.4-5.0); BILIRUBIN,DIRECT 0.2 mg/dL (0.0-0.2); BILIRUBIN,TOTAL 0.6 mg/dL (0.2-1.0); TOTAL PROTEIN, SERUM 8.3 g/dL (6.4-8.2)
[2021-05-11] MEDS ORDERED: LEVETIRACETAM (500MG) 1,000 MG in IV NS 0.9% 100 ML IV SCH (12:00)
[2021-05-11] MEDS ORDERED: LEVE500T9 PO (13:06)
--- NOTE | 2021-05-11 13:58 | NUR ---
CALLED NURSING SUP REGARDING PT BED
--- NOTE | 2021-05-11 15:55 | NUR ---
[facility] CALLED AND GAVE US A BED AT THEIR FACILITY. NUMBER FOR REPORT- [phone] [place] [phone]
--- NOTE | 2021-05-11 16:00 | NUR ---
CALLED [facility] AND HAS AN ETA [phone]
--- NOTE | 2021-05-11 16:11 | NUR ---
TRIED GIVING A REPORT TO MICHAEL JACKSON, CHANTEL SAID TO CALL AGAIN AT AFTER 30MINS BECAUSE NO NURSE IS ASSIGNED YET
--- NOTE | 2021-05-11 17:05 | NUR ---
REPORT GIVEN TO NEHA SORENSEN
[2021-05-11 17:30] VITALS: BP 141/83
== END 2021-05-11 18:12 | disposition short-term general hospital (02) ==
LOC: ER 09:18
DX: S09.90XA Unspecified injury of head, initial encounter (principal); W19.XXXA Unspecified fall, initial encounter; Y92.89 Other specified places as the place of occurrence of the external cause; R56.9 Unspecified convulsions; R29.6 Repeated falls; F15.10 Other stimulant abuse, uncomplicated; Z59.01 Sheltered homelessness; Z79.899 Other long term (current) drug therapy; Z82.49 Family history of ischemic heart disease and other diseases of the circulatory system; M48.02 Spinal stenosis, cervical region; Z20.822 Contact with and (suspected) exposure to COVID-19
CPT/HCPCS: 36415; 70450; 72125; 80048; 80076; 80320; 84484; 85025; 87081; 87426; 93005; 96365; 99285; C9803; J1953; J7030; G0480